=== PATIENT | male | born 1960 | race Caucasian/White ===

== ENCOUNTER → 2021-04-05 | Outpatient (REF) ==
--- NOTE | 2021-04-05 12:14 | REP ---
INDICATION: SHOULER PAIN COMPARISON: None. TECHNIQUE: Internal rotation, external rotation, and Y view. FINDINGS: Cortical irregularity and small osteophytes are identified at the acromioclavicular joint. The subacromial space is relatively normal. The glenoid rim demonstrates subtle blunting and sclerotic changes. The role head is normal. No periarticular calcifications. No evidence for acute fracture or dislocation. IMPRESSION: Early moderate arthritic changes. <Electronically signed by Hugo Kwok > 04/05/21 [id number]
--- NOTE | 2021-04-05 12:27 | REP ---
INDICATION: KNEE PAIN COMPARISON: None. TECHNIQUE: AP, lateral, bilateral oblique and sunrise views. FINDINGS: Prior arthroplasty in satisfactory position and appearance. Osseous structures are essentially normal. Small amounts of soft tissue calcification along the lateral aspect of the joint space as well as subtle osteophyte formation along the superior margin of the patella. Lateral view suggests mild swelling and suprapatellar effusion for which clinical correlation is recommended. IMPRESSION: 1. Satisfactory appearance to the replacement hardware. 2. No acute fracture or dislocation. 3. Mild swelling and effusion cannot be excluded. <Electronically signed by Hugo Kwok > 04/05/21 [id number]
== END ==
LOC: M PLAIMG 11:18
PROVIDERS: ATTEND Internal Medicine
DX: M25.711 Osteophyte, right shoulder (principal); M89.8X1 Other specified disorders of bone, shoulder